=== PATIENT | female | born 1990 | race Two or more races ===

== ENCOUNTER 2023-06-13 21:47 | Emergency (ER) | payer OTHER ==
[~2023-06-13] VITALS: Ht 165.1 cm; Wt 68.0 kg
[2023-06-13] MEDS ORDERED: ATIVAN1 M1 PO (22:10)
[2023-06-13] MEDS ORDERED: XANAX XR3 MG PO (22:11)
[2023-06-13] MEDS ORDERED: CONZIP100 MG (22:11)
[2023-06-13] MEDS ORDERED: PERCOCET 5-3251 EACH PO (22:12)
== END 2023-06-14 | disposition left against medical advice (07) ==
LOC: ER 21:48
DX: Z53.21 Procedure and treatment not carried out due to patient leaving prior to being seen by health care provider (principal)